=== PATIENT | male | born 1970 | race African-American/Black ===

== ENCOUNTER 2021-08-13 14:54 | Inpatient (IN) | payer MEDICARE, SELFPAY ==
[2021-08-13] VITALS (21 sets, daily range): BP systolic 54–152; BP diastolic 38–90; PULSE 64–80; RESP 10–18; TEMP 36.7–36.9; O2SAT 97–100; BMI 50.5; BMI 50.3
--- NOTE | 2021-08-13 15:11 | ECG_ITS ---
APPROVED REPORT Exam: Resting ECG HR:81 bpm ECG Measurements Heart Rate 81 AXES DC 224 P 54 QRSd 104 QRS 16 QT 400 T -6 QTc 464 Conclusion Sinus rhythm with 1st degree AV block Possible Inferior infarct, age undetermined Abnormal ECG Electronically signed by : Zeb Sneed MD 08/15/2021 09:57:43
--- NOTE | 2021-08-13 15:46 | XR_ITS ---
PROCEDURE INFORMATION: Exam: XR Chest Exam date and time: 08/13/2021 3:46 PM Age: 50 years old Clinical indication: Shortness of breath; Additional info: Shortnes of breath TECHNIQUE: Imaging protocol: XR of the chest. Views: 1 view. Total images: 1 COMPARISON: CT CHEST WO CON 08/13/2021 5:54 PM FINDINGS: Lungs: Normal pulmonary expansion. Pulmonary vasculature grossly normal. No gross pulmonary infiltrates or edema pattern. Minor atelectasis in the lung bases. Pleural spaces: No pleural effusion. No pneumothorax. Heart/Mediastinum: Heart size normal. Cardiac pacemaker without gross hardware complication. No tracheal/mediastinal shift. Bones/joints: No acute osseous abnormalities are identified. IMPRESSION: No acute thoracic process.
[2021-08-13 15:56] LABS: Basophils # 0.1 K/mm3 (0-0.2); Basophils % 1.3 % (0.1-2.0); Eosinophils # 0.3 K/mm3 (0.0-0.4); Hematocrit 42.4 % (42.0-52.0); Hemoglobin 12.9 g/dL (14.1-18.0); Lymphocytes # 2.2 K/mm3 (0.7-4.5); Lymphocytes % 27.4 % (10-50); Mean Corpuscular HGB Conc 30.3 g/dL (31.8-35.4); Mean Corpuscular Hemoglobin 26.9 pg (27.0-31.2); Mean Corpuscular Volume 88.6 fl (80-94); Mean Platelet Volume 11.1 fl (7.4-10.4); Monocytes # 0.5 K/mm3 (0.1-1.0); Monocytes % 6.2 % (1.7-9.3); Neutrophils # 4.9 K/mm3 (1.8-7.8); Neutrophils % 61.2 % (37.0-80.0); Platelet Count 331 K/mm3 (142-424); Red Blood Count 4.79 M/mm3 (4.60-6.20); Red Cell Distribution Width 13.4 % (11.5-17.5); White Blood Count 7.9 K/mm3 (4.8-10.8)
[2021-08-13 16:01] LABS: Alanine Aminotransferase 29 U/L (12-78); Albumin Level 4.2 g/dl (3.5-5.0); Albumin/Globulin Ratio 1.2 (1.1-1.8); Alkaline Phosphatase 105 U/L (38-126); Anion Gap 15.7 mEq/L (5-15); Aspartate Amino Transferase 33 U/L (17-59); Bilirubin,Total 1.2 mg/dl (0.2-1.3); Blood Urea Nitrogen 26 mg/dl (9-20); Calcium 9.6 mg/dl (8.4-10.2); Carbon Dioxide 23 mmol/L (22.0-30.0); Chloride 101 mmol/L (98-107); Estimated Glomerular Filt Rate 30 ml/min (>60); GFR (African American) 37 ML/MIN (>60); Globulin 3.5 g/dL (1.3-3.2); Glucose 181 mg/dl (74-100); Potassium 3.7 mmoL/L (3.5-5.1); Sodium 136 mmol/L (136-145); Total Protein,Serum 7.7 g/dl (6.3-8.2)
[2021-08-13 16:13] LABS: NT Pro Brain Natriuretic Pep. 461 pg/mL (0-125); Troponin I 0.03 ng/ml (0.00-0.034)
--- NOTE | 2021-08-13 16:18 | CT_ITS ---
PROCEDURE INFORMATION: Exam: CT Chest Without Contrast; Diagnostic Exam date and time: 08/13/2021 4:18 PM Age: 50 years old Clinical indication: Other: Hypotension TECHNIQUE: Imaging protocol: Diagnostic computed tomography of the chest without contrast. Total images: 810 Radiation optimization: All CT scans at this facility use at least one of these dose optimization techniques: automated exposure control; mA and/or kV adjustment per patient size (includes targeted exams where dose is matched to clinical indication); or iterative reconstruction. COMPARISON: No relevant prior studies available. FINDINGS: Tubes, catheters and devices: Cardiac pacemaker without gross hardware complication. Thyroid: The visualized thyroid gland is unremarkable. Lungs: Mild bilateral bronchial wall thickening suggesting an element of bronchitis or bronchial edema, with no evidence of bronchiectasis or bronchial occlusions. No infiltrates or edema. Mild atelectasis in the lung bases. Pleural spaces: No pleural effusions. No pneumothorax. Heart: Heart size normal. Mediastinal space: The esophagus is largely contracted without gross abnormality. Pulmonary arteries: The pulmonary arteries demonstrate no gross abnormality. Aorta: The aorta is unremarkable. No mediastinal hematoma. Lymph nodes: No supraclavicular or axillary adenopathy. No mediastinal or hilar adenopathy. Spleen: Ill-defined 6.9 x 4.4 x 4.6 cm hypodense mass in the central spleen measuring around 20 Hounsfield units average density. Adjacent 1.8 cm smaller lesion along its posteromedial margin. Characterization is limited without contrast, and is also limited by patient body habitus and image graininess. Consider nonemergent ultrasound assessment to evaluate for simple cystic features. Consider MRI or PET-CT if simple cystic features are not confirmed sonographically. Stomach: Prior gastric sleeve procedure without evidence of associated complication. Bones/joints: No acute osseous abnormalities are identified. Moderate midthoracic spondylosis. Soft tissues: Soft tissues of the thoracic wall demonstrate no acute abnormality. Other findings: 4 mm juxtapleural noncalcified nodule versus fissural node on sagittal image 29. For patients at low risk (minimal or absent history of smoking and of other known risk factors), no routine follow-up is indicated. For patients at high risk (history of smoking or of other known risk factors), consider optional CT at 12 months. (Kyle et al., Fleischner Society, 2017). IMPRESSION: 1. Cardiac pacemaker without gross hardware complication. No evidence to suggest acute cardiac decompensation. 2. Mild bilateral bronchial wall thickening suspicious for mild bronchitis or bronchial edema. 3. Minor atelectasis in the dependent lung bases. No infiltrates. 4. 4 mm juxtapleural nodule versus fissural node in the right middle lobe along the minor fissure. Please see follow-up recommendations above. 5. 6.9 cm hypodense mass in the central spleen with an adjacent 1.8 cm lesion. Characterization is limited with current technique and the lesions are currently indeterminate. Please see management recommendations above.
--- NOTE | 2021-08-13 16:18 | CT_ITS ---
PROCEDURE INFORMATION: Exam: CT Abdomen And Pelvis Without Contrast Exam date and time: 08/13/2021 4:18 PM Age: 50 years old Clinical indication: Other: Hypotension; Prior surgery; Surgery date: <1 month; Surgery type: Weight loss surgery TECHNIQUE: Imaging protocol: Computed tomography of the abdomen and pelvis without contrast. Total images: 884 Radiation optimization: All CT scans at this facility use at least one of these dose optimization techniques: automated exposure control; mA and/or kV adjustment per patient size (includes targeted exams where dose is matched to clinical indication); or iterative reconstruction. COMPARISON: No relevant prior studies available. FINDINGS: Mediastinal space: The visualized distal esophagus is largely contracted without gross abnormality. Liver: Normal contour. No mass lesions. No intrahepatic biliary ductal dilatation. Gallbladder and bile ducts: Normal. No calcified stones. No ductal dilation. Pancreas: Normal. No inflammatory changes or ductal dilation. Spleen: Somewhat ill-defined hypodense 6.9 x 4.4 x 4.6 cm mass in the central spleen with 1.8 cm adjacent lesion along its posteromedial margin. Characterization is limited by noncontrast technique and body habitus/image graininess. It measures approximately 20 Hounsfield units average density. Consider nonemergent ultrasound assessment to evaluate for simple cystic features. If simple cystic features are not confirmed, then further assessment with pre and postcontrast MRI or PET-CT would be recommended. Adrenal glands: Normal. No adrenal mass. Kidneys and ureters: No acute abnormalities. No hydronephrosis or hydroureter. No urinary tract stones are identified. Stomach and bowel: Prior gastric sleeve procedure without evidence of associated complication. The small bowel is nondilated with no gross abnormality. Mildly excessive fluid content in the mid and proximal colonic segments suspicious for diarrheal state, possibly mild enterocolitis. No evidence of bowel obstruction, perforation, or abscess. Appendix: The appendix is normal in caliber and demonstrates no evidence of appendicitis. Intraperitoneal space: No free fluid or air. Vasculature: No acute process. No abdominal aortic aneurysm. Lymph nodes: No adenopathy. Urinary bladder: Unremarkable as visualized. Reproductive: Mildly enlarged prostate. Bones/joints: No acute osseous abnormalities. Soft tissues: Unremarkable. IMPRESSION: 1. Excessive liquid stool content in the mid and proximal colon suspicious for diarrheal state, possibly mild enterocolitis. No evidence of bowel obstruction, perforation, or abscess. 2. Prior gastric sleeve procedure without associated complication. 3. There are 2 splenic lesions measuring 6.9 cm and 1.8 cm, demonstrating indeterminate features with the current technique. Consider nonemergent ultrasound assessment to evaluate for simple cystic features. If simple cystic features are not confirmed, then further assessment with pre and postcontrast MRI or PET-CT is recommended.
[2021-08-13 16:24] LABS: VBG Base Excess -5.9 mmol/L (-2.4-2.3); VBG HCO3 20.1 mmol/L (23-30); VBG Oxygen Saturation 96.9 % (50-70); VBG PCO2 39.1 mmol/L (35-51); VBG PH 7.33 mmol/L (7.31-7.41); VBG PO2 87.7 mmol/L (28-40); VBG Total CO2 21.3 mmol/L (23-27)
--- NOTE | 2021-08-13 16:56 | CT_ITS ---
PROCEDURE INFORMATION: Exam: CT Head Without Contrast Exam date and time: 08/13/2021 4:56 PM Age: 50 years old Clinical indication: Altered mental status/memory loss; Additional info: AMS TECHNIQUE: Imaging protocol: Computed tomography of the head without contrast. Total images: 287 Radiation optimization: All CT scans at this facility use at least one of these dose optimization techniques: automated exposure control; mA and/or kV adjustment per patient size (includes targeted exams where dose is matched to clinical indication); or iterative reconstruction. COMPARISON: No relevant prior studies available. FINDINGS: Brain: No extra-axial fluid collections. No evidence of acute intracranial hemorrhage. Delacruz-white differentiation is well maintained. No CT evidence of large territory acute or subacute intracranial ischemia/infarct. Symmetrical mild subcortical white matter hypodensities in the high frontal distributions bilaterally most consistent with normal variant prominent perivascular spaces. No intracranial mass lesions. No midline shift or herniation. Cerebral ventricles: Ventricles normal. Paranasal sinuses: Mucous retention cyst versus polyp formation in the right maxillary sinus suggesting mild chronic sinus inflammatory disease. No fluid levels. Visualized paranasal sinuses are otherwise clear. Mastoid air cells: Visualized mastoid air cells are clear. Orbital cavity: Visualized orbital contents demonstrate no acute abnormality. Vasculature: The visualized major intracranial arterial segments demonstrate no gross abnormality by noncontrast CT. No asymmetric vascular hyperdensities suggestive of thrombosis are identified. Bones/joints: The calvarium and visualized facial bones are intact. Soft tissues: Mild right occipital scalp soft tissue swelling or scarring with a few small soft tissue calcifications. No underlying fracture. Other findings: The IACs are grossly normal. The sella is grossly normal. IMPRESSION: 1. No acute intracranial process. No intracranial hemorrhage or mass effect. 2. Mild sinus inflammatory disease. 3. Mild right occipital scalp soft tissue swelling or scarring with no underlying fracture.
--- NOTE | 2021-08-13 17:17 | PC.NURSE ---
At 1530 pt was prepped for art line insertion into the right radial artery. Procedure was completed by Dr. Up with verbal consent from patient for hypotension treatment. Pt prepped for procedure and completed with no complications. Levophed started @ 1550 @ 8mcg/min Drip increased to 10mcg/min after approx. 15mins with no change in pt's b/p 1645- Poor waveform with art line and was reading multiple different readings, went into room and flushed line, repositioned patient, turned drip back down to 8mcg/min informed MD of changes. Pt still A&O times 3 at this time with no complaints.
--- NOTE | 2021-08-13 17:19 | HMH.ITSTN ---
I attempted to do chest x-ray and cat scans at 4:45p.m.. Patient is extremely unstable. November his nurse said to hold off on doing x-rays and cat scans till patient is stable.
--- NOTE | 2021-08-13 17:21 | HMH.ITSTN ---
I attempted to do chest x-ray and cat scans on Sebastien Littlejohn at 4:45p.m. November his nurse said to wait until his condition becomes more stable.
--- NOTE | 2021-08-13 17:22 | HMH.ITSTN ---
Exam delayed on Sebastien Littlejohn until his condition stablizes. Talked to his nurse November regarding his condition.
[2021-08-13 17:26] LABS: Coronavirus 19, PCR Not Detected (NotDetected); Influenza A, PCR Not Detected (NotDetected); Influenza B, PCR Not Detected (NotDetected)
--- NOTE | 2021-08-13 17:28 | PC.NURSE ---
Notified rad pt was able to go over for CT scans at this time.
--- NOTE | 2021-08-13 19:14 | HMH.EDGENADL ---
ED Disposition Clinical Impression: Hypotension Disposition: Admitted As Inpatient Condition on Discharge: Serious Referrals: Franck Quinn MD [Primary Care Provider] - - Critical Care Critical Care Time: Yes Attestation: On 08/13/21, the high probability of a clinically significant, sudden or life threatening deterioration of the following system(s) required my full and direct attention, intervention and personal management. The time I documented below is in addition to time spent performing reported procedures but includes the following listed in this critical care notation. Total Critical Care Time: 35 Vital system(s) involved:: Circulatory Failure My critical care processes included: Assessment & monitoring of V/S, Initial and Re-exams, Data Review/Interpretation, Coordinating Care, Medication Orders and management, Documentation Medical Decision Making - George Inquiry Pt receiving controlled substance: No Vital Signs: 08/13/21 14:56 08/13/21 15:23 08/13/21 15:28 Temperature 98.5 F Temperature Source Oral Pulse Rate 80 78 Pulse Rate [Right] 78 Respiratory Rate 16 16 16 Blood Pressure 71/38 L 96/52 L Blood Pressure [Right Arm] 54/38 L Blood Pressure Mean 52 64 Blood Pressure Mean [Right Arm] 43 Blood Pressure Source [Right Arm] Manual Cuff/ Doppler Blood Pressure Position [Right Arm] Supine 02 Sat by Pulse Oximetry 97 98 99 Oxygen Delivery Method Room Air Oxygen Flow Rate (LPM) 2 08/13/21 15:40 08/13/21 15:50 08/13/21 16:00 Temperature Temperature Source Pulse Rate 78 78 74 Pulse Rate [Right] Respiratory Rate 16 16 12 Blood Pressure 103/59 L 108/65 L 111/73 Blood Pressure [Right Arm] Blood Pressure Mean 73 72 85 Blood Pressure Mean [Right Arm] Blood Pressure Source [Right Arm] Blood Pressure Position [Right Arm] 02 Sat by Pulse Oximetry 98 98 100 Oxygen Delivery Method Oxygen Flow Rate (LPM) 08/13/21 16:10 08/13/21 16:20 08/13/21 16:50 Temperature Temperature Source Pulse Rate 74 77 Pulse Rate [Right] Respiratory Rate 12 14 12 Blood Pressure 119/68 113/72 133/83 Blood Pressure [Right Arm] Blood Pressure Mean 81 84 99 Blood Pressure Mean [Right Arm] Blood Pressure Source [Right Arm] Blood Pressure Position [Right Arm] 02 Sat by Pulse Oximetry 100 100 100 Oxygen Delivery Method Oxygen Flow Rate (LPM) 08/13/21 17:10 08/13/21 17:20 08/13/21 17:41 Temperature Temperature Source Pulse Rate 70 64 80 Pulse Rate [Right] Respiratory Rate 13 12 16 Blood Pressure 136/77 145/74 H 112/70 Blood Pressure [Right Arm] Blood Pressure Mean 96 98 84 Blood Pressure Mean [Right Arm] Blood Pressure Source [Right Arm] Blood Pressure Position [Right Arm] 02 Sat by Pulse Oximetry 100 100 Oxygen Delivery Method Oxygen Flow Rate (LPM) 08/13/21 18:20 08/13/21 18:40 Temperature Temperature Source Pulse Rate 70 70 Pulse Rate [Right] Respiratory Rate 12 12 Blood Pressure 136/79 135/76 Blood Pressure [Right Arm] Blood Pressure Mean 90 89 Blood Pressure Mean [Right Arm] Blood Pressure Source [Right Arm] Blood Pressure Position [Right Arm] 02 Sat by Pulse Oximetry 100 100 Oxygen Delivery Method Oxygen Flow Rate (LPM) - Lab Data Lab Results 08/13/21 14:55: WBC 7.9, RBC 4.79, Hgb 12.9 L, Hct 42.4, MCV 88.6, MCH 26.9 L, MCHC 30.3 L, RDW 13.4, Plt Count 331, MPV 11.1 H, Neut % (Auto) 61.2, Lymph % (Auto) 27.4, [facility] % (Auto) 6.2, Eos % (Auto) 4.0, Baso % (Auto) 1.3, Neut # (Auto) 4.9, Lymph # (Auto) 2.2, [facility] # (Auto) 0.5, Eos # (Auto) 0.3, Baso # (Auto) 0.1 08/13/21 14:55: Sodium 136, Potassium 3.7, Chloride 101, Carbon Dioxide 23, Anion Gap 15.7 H, BUN 26 H, Creatinine 2.30 H, Estimated GFR 30 L, Est GFR ( Amer) 37 L, Glucose 181 H, Calcium 9.6, Total Bilirubin 1.2, AST 33, ALT 29, Alkaline Phosphatase 105, Troponin I 0.03, NT-Pro-B Natriuret Pep 461 H, Total Prote
--- NOTE | 2021-08-13 19:33 | PC.NURSE ---
Levo decreased to 6mcg/min
--- NOTE | 2021-08-13 19:54 | PC.NURSE ---
called house to notified that patient needs a bed
[2021-08-13 19:59] LABS: Troponin I 0.03 ng/ml (0.00-0.034)
--- NOTE | 2021-08-13 20:01 | PC.NURSE ---
Levo stopped at this time for BP 142/78 Art reading 113
--- NOTE | 2021-08-13 20:54 | PC.NURSE ---
Report called to Karla Green RN at this time
[2021-08-13 21:14] LABS: Lactic Acid 0.6 mmol/L (0.7-2.1)
--- NOTE | 2021-08-13 21:30 | PC.NURSE ---
patient up to floor via stretcher at this time.
[2021-08-14] VITALS (11 sets, daily range): BP systolic 122–164; BP diastolic 64–90; PULSE 70–86; RESP 15–20; TEMP 36.7–37; O2SAT 95–100; BMI 50.8; BMI 50.7
--- NOTE | 2021-08-14 08:03 | HMH.PHACONS ---
- Pharmacy Consult Date: 08/14/21 Time: 08:03 Referring provider: DR DE LEON Reason for Consult:: VANCOMYCIN DOSING CONSULT Allergies and ADEs:: Allergies Allergy/AdvReac Type Severity Reaction Status Date / Time No Known Allergies Allergy Verified 10/25/18 12:51 Home Medications:: Home Medications Medication Instructions Recorded Confirmed Type albuterol sulfate 90 mcg/actuation 2 puff INHALATION Q4H PRN each 09/09/17 08/13/21 History breath activated powder inhaler ergocalciferol (vitamin D2) 1,250 50,000 unit PO Q2W 09/09/17 08/13/21 History mcg (50,000 unit) capsule fluoxetine 40 mg capsule 60 mg PO QDAY 09/09/17 08/13/21 History nitroglycerin 0.4 mg sublingual 0.4 mg SUBLINGUAL Q5M PRN 09/09/17 08/13/21 History tablet oxycodone 10 mg tablet 10 mg PO Q8HP PRN tab 09/09/17 08/13/21 History insulin aspar prot-insulin aspart 38 unit SUB-Q DAILY ml 01/26/18 08/13/21 History 100 unit/mL (70-30) subcutaneous pen Amlodipine Besylate [Amlodipine 10 mg PO BID 08/13/21 08/13/21 History 10mg Tab] Aspirin [Aspirin 325mg Tab] 325 mg PO QDAY 08/13/21 08/13/21 History Atorvastatin Calcium [Lipitor 80mg 80 mg PO QDAY 08/13/21 08/13/21 History Tablet*] Doxazosin Mesylate [Doxazosin 1mg 1 mg PO BID 08/13/21 08/13/21 History Tab] Furosemide [Furosemide 40MG tAB*] 40 mg PO BID 08/13/21 08/13/21 History Spironolactone [Spironolactone 25 mg PO BID 08/13/21 08/13/21 History 25mg Tab] carvediloL [Carvedilol 25mg Tab] 50 mg PO BID 08/13/21 08/13/21 History hydroCHLOROthiazide 50 mg PO QDAY 08/13/21 08/13/21 History [Hydrochlorothiazide 50mg Tab] lisinopriL [Lisinopril 40mg Tablet] 40 mg PO QDAY 08/13/21 08/13/21 History Height: 1.83 m Weight: 170.369 kg Laboratory Results:: Laboratory Results - last 24 hr 08/13/21 14:55: WBC 7.9, RBC 4.79, Hgb 12.9 L, Hct 42.4, MCV 88.6, MCH 26.9 L, MCHC 30.3 L, RDW 13.4, Plt Count 331, MPV 11.1 H, Neut % (Auto) 61.2, Lymph % (Auto) 27.4, [place] % (Auto) 6.2, Eos % (Auto) 4.0, Baso % (Auto) 1.3, Neut # (Auto) 4.9, Lymph # (Auto) 2.2, [place] # (Auto) 0.5, Eos # (Auto) 0.3, Baso # (Auto) 0.1 08/13/21 14:55: Sodium 136, Potassium 3.7, Chloride 101, Carbon Dioxide 23, Anion Gap 15.7 H, BUN 26 H, Creatinine 2.30 H, Estimated GFR 30 L, Est GFR ( Amer) 37 L, Glucose 181 H, Calcium 9.6, Total Bilirubin 1.2, AST 33, ALT 29, Alkaline Phosphatase 105, Troponin I 0.03, NT-Pro-B Natriuret Pep 461 H, Total Protein 7.7, Albumin 4.2, Globulin 3.5 H, Albumin/Globulin Ratio 1.2 08/13/21 15:46: VBG pH 7.33, VBG pCO2 39.1, VBG pO2 87.7 H, VBG HCO3 20.1 L, VBG Total CO2 21.3 L, VBG O2 Saturation 96.9 H, VBG Base Excess -5.9 L 08/13/21 17:20: SARS-CoV-2 (PCR) Not detected, Influenza A Untype (PCR) Not detected, Influenza Type B (PCR) Not detected 08/13/21 19:12: Troponin I 0.03 08/13/21 20:53: Lactate 0.6 L Medical History: Reports:: Asthma, Cardiomyopathy, Coronary Artery Disease, Diabetes Mellitus Type 2, Heart Murmur, Hyperlipidemia, Hypertension, Internal Pacemaker Assessment and Plan - Assessment and plan all Dx Assessment and Plan for all problems:: Subjective and Objective Data: This is a 50 year old MALE patient with sepsis. Measured serum creatinine (SCr) is 2.3 mg/dL. Given a height of 183 cm and a weight of 170.4 kg, estimated creatinine clearance is 62.4 mL/min (using the CrCl AdjBW body weight). The following targets were selected for dosing: - Desired AUC = 500 mcg*h/mL - Desired Cmax = 35 mcg/mL - Desired Cmin = 12.5 mcg/mL - Vd coefficient = 0.65 L/kg - Ke equation = CrCl*0.11614+0.0044 Calculations: Based on above, the following are calculated parameters for AUC-based vancomycin dosing in this patient: - Calculated Vd = [id number] - Calculated Ke = 0.056 inverse hours - Calculated half-life = 12.3 hours Recommended Prescribed Dosing: GIVE Vancomycin IV 2000mg [id number] Which is predicted to achieve the following parameter
--- NOTE | 2021-08-14 08:46 | HMH.HP ---
*Admission Date: 08/13/21 *Chief complaint: Malaise/fatigue *History of present illness: 50-year-old white male who suffers from a host of medical problems, including morbid obesity with BMI greater than 50, diabetes type 2 but insulin requiring, cardiomyopathy of uncertain type with pacemaker/defibrillator placement, and who recently underwent gastric sleeve surgery for weight loss at [facility] 2 weeks ago. He reports that this was uncomplicated, and he went home the next day. He has been doing well, and reports that he thinks has been keeping his fluid intake up and is felt okay. He was at a friend's home in [place] over the past couple of days and was called by his glass setter in [place] that he had been in some type of ventricular arrhythmia through the night and they were calling to check on him. He reports that he felt fine until yesterday around 11:30 AM when he was walking down some steps and his defibrillator shocked, but he had no chest pain, no sense of palpitations and did not feel bad until after he was shocked. He reports after the shocking incident he felt progressively more weak, fatigued and lethargic. Came to the emergency department here, where he was found to be profoundly hypotensive in the 50-60 range systolically. Given his obesity and difficulty of obtaining blood pressures with adequate size cuff an art line was placed which confirmed the blood pressure cuff readings of pressures in the 50s to 60s systolic. Blood counts were normal, creatinine was 2.3, we do not have a baseline, but patient appeared slightly dehydrated. Patient was covered for sepsis with broad-spectrum antibiotics, blood cultures were obtained and patient was given a couple of liters of fluid in the ER. He felt a little better, admitted to floor for further evaluation. [facility] History I have reviewed the patient's past medical history: Yes Medical History: Reports:: Asthma, Cardiomyopathy, Coronary Artery Disease, Diabetes Mellitus Type 2, Heart Murmur, Hyperlipidemia, Hypertension, Internal Pacemaker *Have you ever received a pneumonia vaccine?: Yes *Have you received a flu vaccine this season?: Yes Other Medical History: Reports: Arthritis, Thyroid Disease (graves disease) Laterality Cases: Bilateral: Tonsillectomy Other Surgeries: Yes: Angiogram (06/06/18), Angioplasty (2009 no stents), Bariatric Surgery, Cardiac Catheterization, Hernia Repair, Pacemaker Fractures: Yes (Rt wrist) - *Social History Last grade of school completed: High school graduate Smoking Status: Never smoker Alcohol Intake: never Substance Use Type: denies use *Occupational Status:: disabled Housing: house Household Members: family *Travel in the last 8 weeks: None Family Hx:: No significant family history Review of Systems - Review of Systems Review of systems:: pertinent systems reviewed and negative unless documented below Meds Home Medications Medication Instructions Recorded Confirmed Type albuterol sulfate 90 mcg/actuation 2 puff INHALATION Q4H PRN each 09/09/17 08/13/21 History breath activated powder inhaler ergocalciferol (vitamin D2) 1,250 50,000 unit PO Q2W 09/09/17 08/13/21 History mcg (50,000 unit) capsule fluoxetine 40 mg capsule 60 mg PO QDAY 09/09/17 08/13/21 History nitroglycerin 0.4 mg sublingual 0.4 mg SUBLINGUAL Q5M PRN 09/09/17 08/13/21 History tablet oxycodone 10 mg tablet 10 mg PO Q8HP PRN tab 09/09/17 08/13/21 History insulin aspar prot-insulin aspart 38 unit SUB-Q DAILY ml 01/26/18 08/13/21 History 100 unit/mL (70-30) subcutaneous pen Amlodipine Besylate [Amlodipine 10 mg PO BID 08/13/21 08/13/21 History 10mg Tab] Aspirin [Aspirin 325mg Tab] 325 mg PO QDAY 08/13/21 08/13/21 History Atorvastatin Calcium [Lipitor 80mg 80 mg PO HS 08/13/21 08/14/21 History Tablet*] Doxazosin Mesylate [Doxazosin 1mg 1 mg PO DAILY 08/13/21 08/14/21 History Tab] Furosemide [Furosemide 40MG tAB*] 40 mg P
[2021-08-14 08:48] LABS: Chloride 105 mmol/L (98-107); Sodium 139 mmol/L (136-145)
[2021-08-14 08:51] LABS: Blood Urea Nitrogen 22 mg/dl (9-20); Creatinine Clearance Estimated 65 mL/min (50-200); Estimated Glomerular Filt Rate 50 ml/min (>60); GFR (African American) 60 ML/MIN (>60)
[2021-08-14 08:52] LABS: Calcium 8.6 mg/dl (8.4-10.2); Carbon Dioxide 25 mmol/L (22.0-30.0); Glucose 142 mg/dl (74-100)
--- NOTE | 2021-08-14 11:01 | HMH.PHAVTE ---
[facility] Pharmacy VTE Monitoring - Patient Demographics Admission date: 08/13/21 Report Date: 08/14/21 Time: 11:01 Allergies/Adverse Reactions: Patient Allergies No Known Allergies Allergy (Verified 10/25/18 12:51) Height: 1.83 m Weight: 170.369 kg Patient Problems: Current Active Problems Hypotension (Acute) Diabetes mellitus type 2 in obese (Acute) History of supraventricular tachycardia (Chronic) Stage 4 chronic kidney disease (Chronic) Automatic implantable cardioverter-defibrillator in situ (Chronic) Systolic heart failure (Chronic) - VTE Risk Labs: VTE Related Lab Results Hgb 12.9 g/dL (14.1-18.0) L 08/13/21 14:55 Hct 42.4 % (42.0-52.0) 08/13/21 14:55 Plt Count 331 K/mm3 (142-424) 08/13/21 14:55 BUN 22 mg/dl (9-20) H 08/14/21 08:35 Creatinine 1.50 mg/dl (0.66-1.25) H D 08/14/21 08:35 Estimated Creat Clear 65 mL/min (50-200) 08/14/21 08:35 VTE Score: 3 VTE Risk Level: Low Risk - Prophylaxis VTE Prophylaxis Ordered?: Yes Types of VTE Prophylaxis: TEDS Knee High Location of Applied Device: Bilateral Lower Extremeties
--- NOTE | 2021-08-14 11:43 | HMH.CNCARD ---
History of Present Illness Consult date: 08/14/21 Requesting physician: Zeb Sneed Consult reason: congestive heart failure Chief complaint: fatigue History of present illness: This is a 50-year-old -[place] gentleman who presented to the emergency department after he was shocked by his defibrillator and experiencing fatigue and lethargy. The patient has multiple medical problems including cardiomyopathy, congestive heart failure, diabetes, morbid obesity, and hypertension. The patient used to see our cardiology clinic in [place] but has since started going to [facility] for his cardiac care. He is status post gastric sleeve approximately 2 weeks ago. He states that he weighed 398 pounds on the day of surgery and he is now down to 373 pounds in about 2 weeks. He states that his surgery went well and he went home the next day. He reports that he has been keeping up with his fluid intake and he felt fine. 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 On review of his interrogation today he did have several nonsustained high V rates. The patient states that he was walking downstairs to get in his car to come to [facility] around 1130 yesterday when he just did not feel well. He states that he got dizzy and felt like he might pass out and his defibrillator shocked him. He states that he got on into the car and tried to drive to [facility] but he got more weak and lethargic the more he drove so when he got to [place] he just came on to [facility] to be seen. The patient was found to have a systolic blood pressure in the 50s and 60s. They were having some difficulty obtaining his blood pressure and getting an adequate cuff size due to his size so an art line was placed which did confirm that his blood pressure was in the 50s to 60s systolic. His creatinine was up to 2.3 so the patient did appear to be dehydrated. He had been getting some slow hydration because of his dehydration and hypotension. His blood pressure is much improved today. He states he is feeling so much better. He states he is a little fatigued now but nowhere near as bad as he was yesterday. He denies any chest pain or pressure. He denies any shortness of breath or edema. He denies any fever, chills, nausea, vomiting, diarrhea, PND or orthopnea. The patient is lying flat when I walk in the room. [facility] History I have reviewed the patient's past medical history: Yes Medical History: Reports:: Asthma, Cardiomyopathy, Congestive Heart Failure, Diabetes Mellitus Type 2, Heart Murmur, Hyperlipidemia, Hypertension, Internal Pacemaker *Have you ever received a pneumonia vaccine?: Yes *Have you received a flu vaccine this season?: Yes Other Medical History: Reports: Arthritis, Thyroid Disease (graves disease) Laterality Cases: Bilateral: Tonsillectomy Other Surgeries: Yes: Angiogram (06/06/18), Angioplasty (2009 no stents), Bariatric Surgery, Cardiac Catheterization, Hernia Repair, Pacemaker Fractures: Yes (Rt wrist) - *Social History Last grade of school completed: High school graduate Smoking Status: Never smoker Alcohol Intake: never Substance Use Type: denies use *Occupational Status:: disabled Housing: house Household Members: family *Travel in the last 8 weeks: None Family Hx:: No significant family history Meds Home Medications Medication Instructions Recorded Confirmed Type ergocalciferol (vitamin D2) 1,250 50,000 unit PO DIRECTED 09/09/17 08/14/21 History mcg (50,000 unit) capsule nitroglycerin 0.4 mg sublingual 0.4 mg SUBLINGUAL Q5M PRN 09/09/17 08/13/21 History tablet oxycodone 10 mg tablet 10 mg PO Q8HP PRN tab 09/09/17 08/13/21 History insulin aspar prot-insulin aspart 38 unit TABARES
[2021-08-14 12:16] LABS: Free T4 (Free Thyroxine) 1.24 ng/dl (0.78-2.19)
[2021-08-14 12:19] LABS: Magnesium 1.8 mg/dl (1.6-2.3)
[2021-08-14 13:43] LABS: Thyroid Stimulating Hormone 0.62 uIU/mL (0.465-4.68)
--- NOTE | 2021-08-14 15:33 | DIET.NUTRFU ---
This RD saw patient today to review post-op gastric sleeve diet. Patient was admitted 2 weeks post-op, d/t not drinking enough and BP meds. 2 weeks post-op diet includes small frequent meals only 1/3 portion size of our regular diet. Soft proteins: suggested cottage cheese/tuna salad and chicken salad along with cheese slices. goal is 60-80gm protein/day, will make some of these protein available on floor. Also suggested yogurt pudding- those have additional sugars and he is diabetic. He is also to avoid carbonated beverages and caffeine, he reports he is drinking mostly water at this time. He seemed well educated on the diet, will re-visit to make sure he is finding enough choices to meet his needs at his restrictions.
--- NOTE | 2021-08-14 17:39 | PC.NURSE ---
PT IS RESTING IN BED. NO COMPLAINTS OF DISCOMFORT. ALERT AND ORIENTED X4. EATING AND DRINKING WELL. PT STATED HE VOIDED WHEN HE WENT TO THE BATHROOM THIS AM. PT IS AWARE WE STILL NEED TO COLLECT URINE SPECIMEN (URINAL AT BEDSIDE). LUNG SOUNDS CLEAR. ABDOMEN SOFT/LARGE WITH HYPOACTIVE BOWEL SOUNDS. PACED ON TELEMETRY. WILL CONTINUE TO MONITOR.
[2021-08-14 17:53] LABS: POC Glucose,Bedside 115 (70-110)
[2021-08-14 20:37] LABS: Microscopic, Urine URINE MICROSCOPIC (MICROSCOPIC)
[2021-08-14 20:57] LABS: Appearance,Urine CLEAR (Clear); Bilirubin,Urine Negative (Negative); Blood, Urine Negative (Negative); Color,Urine DK YELLOW (Yellow); Glucose,Urine (UA) Negative (Negative); Ketones,Urine 1+ (Negative); Leukocyte Esterase,Urine Negative (Negative); Nitrate,Urine Negative (Negative); Protein,Urine TRACE (Negative); Specific Gravity, Urine >= 1.030 (1.005-1.030); Urobilinogen,Urine 0.2 EU/dl (0.2)
[2021-08-14 21:08] LABS: Barbiturates Screen,Urine Negative ng/ml (<200)
[2021-08-14 21:09] LABS: Benzodiazepines Screen,Urine Negative ng/ml (<200)
[2021-08-14 21:10] LABS: Amphetamine/Metha Screen,Urine Negative ng/ml (<1000); Cannabinoid Screen,Urine Negative ng/ml (<50)
[2021-08-14 21:11] LABS: Cocaine Screen,Urine Negative ng/ml (<300)
[2021-08-14 21:12] LABS: Methadone Screen,Urine Negative ng/ml (<300); Opiate Screen,Urine Negative ng/ml (<300)
[2021-08-14 21:13] LABS: Phencyclidine Screen,Urine Negative ng/ml (<25)
[2021-08-14 21:23] LABS: Bacteria,Urine 2+ /lpf; Mucus,Urine 1+ /lpf
[2021-08-14 22:01] LABS: POC Glucose,Bedside 108 (70-110)
[2021-08-15] VITALS: PULSE 60
[2021-08-15 04:00] VITALS: BP 138/76; PULSE 70; PULSE 73; RESP 18; TEMP 36.8; O2SAT 97
[2021-08-15 05:00] VITALS: BMI 50.8
[2021-08-15 06:32] LABS: MANUAL DIFFERENTIAL MANUAL DIFFERENTIAL (MANUAL DIFF)
[2021-08-15 06:42] LABS: Basophils # 0.1 K/mm3 (0-0.2); Basophils % 0.8 % (0.1-2.0); Eosinophils # 0.6 K/mm3 (0.0-0.4); Eosinophils % 7.1 % (0.1-12.0); Hematocrit 37.1 % (42.0-52.0); Hemoglobin 11.2 g/dL (14.1-18.0); Lymphocytes # 2.2 K/mm3 (0.7-4.5); Lymphocytes % 28.8 % (10-50); Mean Corpuscular HGB Conc 30.3 g/dL (31.8-35.4); Mean Platelet Volume 11.6 fl (7.4-10.4); Monocytes # 0.5 K/mm3 (0.1-1.0); Monocytes % 6.5 % (1.7-9.3); Neutrophils # 4.4 K/mm3 (1.8-7.8); Neutrophils % 56.7 % (37.0-80.0); Platelet Count 211 K/mm3 (142-424); Red Blood Count 4.17 M/mm3 (4.60-6.20); Red Cell Distribution Width 13.4 % (11.5-17.5); White Blood Count 7.8 K/mm3 (4.8-10.8)
[2021-08-15 06:49] LABS: Chloride 108 mmol/L (98-107); Potassium 3.5 mmoL/L (3.5-5.1); Sodium 141 mmol/L (136-145)
[2021-08-15 06:52] LABS: Anion Gap 12.5 mEq/L (5-15); Blood Urea Nitrogen 17 mg/dl (9-20); Carbon Dioxide 24 mmol/L (22.0-30.0); Creatinine Clearance Estimated 81 mL/min (50-200); Estimated Glomerular Filt Rate 64 ml/min (>60); GFR (African American) 78 ML/MIN (>60)
[2021-08-15 06:53] LABS: Calcium 8.7 mg/dl (8.4-10.2); Glucose 114 mg/dl (74-100)
[2021-08-15 06:59] LABS: POC Glucose,Bedside 110 (70-110)
--- NOTE | 2021-08-15 07:33 | HMH.DCSUM ---
General - General Admission date:: 08/13/21 Discharge date: 08/15/21 HPI HPI: 50-year-old white male who suffers from a host of medical problems, including morbid obesity with BMI greater than 50, diabetes type 2 but insulin requiring, cardiomyopathy of uncertain type with pacemaker/defibrillator placement, and who recently underwent gastric sleeve surgery for weight loss at [facility] 2 weeks ago. He reports that this was uncomplicated, and he went home the next day. He has been doing well, and reports that he thinks has been keeping his fluid intake up and is felt okay. He was at a friend's home in [facility] over the past couple of days and was called by his recreation counselor in [place] that he had been in some type of ventricular arrhythmia through the night and they were calling to check on him. He reports that he felt fine until yesterday around 11:30 AM when he was walking down some steps and his defibrillator shocked, but he had no chest pain, no sense of palpitations and did not feel bad until after he was shocked. He reports after the shocking incident he felt progressively more weak, fatigued and lethargic. Came to the emergency department here, where he was found to be profoundly hypotensive in the 50-60 range systolically. Given his obesity and difficulty of obtaining blood pressures with adequate size cuff an art line was placed which confirmed the blood pressure cuff readings of pressures in the 50s to 60s systolic. Blood counts were normal, creatinine was 2.3, we do not have a baseline, but patient appeared slightly dehydrated. Patient was covered for sepsis with broad-spectrum antibiotics, blood cultures were obtained and patient was given a couple of liters of fluid in the ER. He felt a little better, admitted to floor for further evaluation. Hospital Course Hospital Course: 50-year-old gentleman with cardiomyopathy, type 2 diabetes, morbid obesity, A. fib, AICD who presented with hypotension, ROSALES, and dehydration. Cardiology was consulted to assist in his care. Initiated on antibiotics initially for sepsis though he has had no focal sign of infection. Treatment of conditions was as follows: ROSALES -Secondary to dehydration and hypotension. Improved with fluid resuscitation and holding blood pressure medications. Back to baseline by day of discharge. Morbid obesity status post gastric sleeve 2 weeks ago. -Weight down 20 to 30 pounds in 2 weeks following this procedure. Likely culprit in his hypotension and dehydration because of rapid weight loss and poor p.o. intake tolerance. Will need continued close follow-up for regular adjustments of medications with weight loss Cardiomyopathy History of malignant hypertension - We have stopped his Coreg, Cardura, MANAV inhibitor and diuretics. He has been started on bisoprolol 20 mg daily for his blood pressure and rate control. He has tolerated this well with no episodes of significant tachycardia since being admitted to the hospital. His blood pressure is now well controlled. Continue to monitor closely with outpatient care AICD Fibrillation -AICD interrogated during admission, showed he was shocked but it was not a shockable rhythm. The patient was in atrial fibrillation with RVR but his rate was in the VF zone so he was shocked. We did change the settings to his defibrillator to hopefully prevent him from being shocked again for atrial fibrillation with RVR. He has been started on amiodarone 400 mg p.o. twice daily for suppression of atrial fibrillation. He will remain on this dose for 2 weeks and then he will need to be titrated down to amiodarone 200 mg twice daily and then 2 weeks after that he will need to be titrated down to 200 mg a day or less. The patient's atrial fibrillation burden is less than 1% so he does not require long-term anticoagulation at this time. Medically stable for discharge home. Continue to monitor blood glucose regul
[2021-08-15 08:00] VITALS: BP 155/85; PULSE 72; PULSE 80; RESP 16; TEMP 36.7; O2SAT 92
[2021-08-15 08:12] LABS: Hemoglobin A1C 5.7 % (4.0-6.0)
--- NOTE | 2021-08-15 08:54 | HMH.PNCARD ---
Subjective Date: 08/15/21 Time: 08:54 Principal diagnosis: afib with RVR, hypotension Interval history: This is a 50-year-old -[place]vad[place] gentleman who presented to the emergency department after being shocked by his defibrillator and experiencing fatigue and lethargy. The patient was found to be profoundly hypotensive with a systolic blood pressure of 50-60 which was confirmed by arterial line placement. Creatinine was also 2.3. The patient was admitted to the hospital and got some gentle rehydration and his blood pressure medications adjusted. He is status post gastric sleeve approximately 2 weeks ago and has dropped 20 to 30 pounds in the last 2 weeks so he was most likely overmedicated for his hypertension which has been an issue in the past. His AICD was interrogated yesterday which did show that he was shocked. This was an inappropriate shock for atrial fibrillation with RVR that had a rate in the VF zone. His AICD settings were adjusted to hopefully prevent inappropriate shocks for A. fib with RVR again. The patient has been started on amiodarone and his Coreg has been switched over to bisoprolol. He has had no more episodes of tachycardia. His blood pressure has normalized. He denies any chest pain or pressure. He denies any shortness of breath or edema. He denies any fever, chills, nausea, vomiting, diarrhea, PND or orthopnea. Exam Vital signs and Labs for Last 24 Hours: Temp Pulse Resp BP Pulse Ox 98.1 F 72 16 155/85 H 92 L 08/15/21 08:00 08/15/21 08:00 08/15/21 08:00 08/15/21 08:00 08/15/21 08:00 Laboratory Results - last 24 hr 08/14/21 08:35: Carbon Dioxide 25, Anion Gap 13.0, BUN 22 H, Creatinine 1.50 H D, Estimated Creat Clear 65, Estimated GFR 50 L, Est GFR ( Amer) 60 D, Glucose 142 H D, Calcium 8.6 08/14/21 10:42: Magnesium 1.8, TSH 0.62 08/14/21 10:42: Free T4 1.24 08/14/21 16:43: POC Glucose 115 H 08/14/21 20:15: Urine Opiates Screen Negative, Urine Methadone Screen Negative, Ur Barbituates Screen Negative, Ur Phencyclidine Scrn Negative, Ur Amphetamines Screen Negative, U Benzodiazepines Scrn Negative, Urine Cocaine Screen Negative, U Marijuana (THC) Screen Negative 08/14/21 20:15: Urine Color Dk yellow, Urine Appearance Clear, Urine pH 6.0, Ur Specific [place] >= 1.030, Urine Protein Trace, Urine Glucose (UA) Negative, Urine Ketones 1+, Urine Blood Negative, Urine Nitrate Negative, Urine Bilirubin Negative, Urine Urobilinogen 0.2, Ur Leukocyte Esterase Negative, Urine WBC 5-10, Ur Squamous Epith Cells 3-5, Urine Bacteria 2+, Urine Mucus 1+ 08/14/21 21:52: POC Glucose 108 08/15/21 05:45: Hemoglobin A1c 5.7 08/15/21 05:45: WBC 7.8, RBC 4.17 L, Hgb 11.2 L, Hct 37.1 L, MCV 89.0, MCH 27.0, MCHC 30.3 L, RDW 13.4, Plt Count 211 D, MPV 11.6 H, Neut % (Auto) 56.7, Lymph % (Auto) 28.8, [place] % (Auto) 6.5, Eos % (Auto) 7.1, Baso % (Auto) 0.8, Neut # (Auto) 4.4, Lymph # (Auto) 2.2, [place] # (Auto) 0.5, Eos # (Auto) 0.6 H, Baso # (Auto) 0.1 08/15/21 05:45: Sodium 141, Potassium 3.5, Chloride 108 H, Carbon Dioxide 24, Anion Gap 12.5, BUN 17, Creatinine 1.20, Estimated Creat Clear 81, Estimated GFR 64, Est GFR ( Amer) 78 D, Glucose 114 H, Calcium 8.7 08/15/21 06:53: POC Glucose 110 I & O for Last 24 hours: Intake & Output 08/12/21 08/13/21 08/14/21 08/15/21 23:59 23:59 23:59 23:59 Intake Total 1999 / 1999 480 / 480 120 / 120 Output Total 200 / 200 200 / 200 300 / 300 Balance 1800 / 1800 280 / 280 -180 / -180 Weight 371 lb 4.8 oz 374 lb 12.573 oz 375 lb 3.2 oz Narrative: Telemetry strip shows V pacing with a rate of 70. - Constitutional no acute distress, morbidly obese - *Routine HEENT Exam Head: Present: normocephalic, atraumatic Eye: Present: EOMI, PERRL ENT: Present: mucous membranes moist - *Routine Neck Exam Present: supple, full ROM, normal carotid upstroke. Absent: JVD, carotid bruit, lymphadenopathy - *Routine Respiratory Exam Present: CTA bilaterally - *Routine Card
[2021-08-15 09:14] LABS: Eosinophils % 4 % (0-3); Giant Platelets 1+; Hypochromasia 2+; Lymphocytes % 29 % (10-50); Monocytes % 4 % (2-9); Neutrophils % 62 % (42-76); Platelet Estimate Normal; Total Cells Counted 100
[2021-08-15 11:12] LABS: POC Glucose,Bedside 139 (70-110)
[2021-08-15 11:29] VITALS: BP 150/86; PULSE 70; RESP 20; TEMP 36.7; O2SAT 92
[2021-08-15 12:00] VITALS: PULSE 70
== END 2021-08-15 13:58 | disposition home or self-care (01) | DRG 683 ==
LOC: ER 19:22 → 2ND 19:57
PROVIDERS: Internal Medicine Adolescent Medicine; Nurse Practitioner Family; Admitting Provider Internal Medicine Adolescent Medicine; Emergency Provider Internal Medicine Critical Care Medicine; PCP Family Medicine; Visit Provider Internal Medicine Adolescent Medicine
DX: N17.9 Acute kidney failure, unspecified (principal); I95.89 Other hypotension; I13.0 Hypertensive heart and chronic kidney disease with heart failure and stage 1 through stage 4 chronic kidney disease, or unspecified chronic kidney disease; Z68.43 Body mass index [BMI] 50.0-59.9, adult; E86.0 Dehydration; Z20.822 Contact with and (suspected) exposure to COVID-19; I42.9 Cardiomyopathy, unspecified; I50.22 Chronic systolic (congestive) heart failure; N18.4 Chronic kidney disease, stage 4 (severe); E11.22 Type 2 diabetes mellitus with diabetic chronic kidney disease; E66.01 Morbid (severe) obesity due to excess calories; Z95.810 Presence of automatic (implantable) cardiac defibrillator; M19.90 Unspecified osteoarthritis, unspecified site; Z79.4 Long term (current) use of insulin
CPT/HCPCS: 36415; 70450; 71045; 71250; 74176; 80048; 80053; 80305; 81001; 82803; 82962; 83036; 83605; 83735; 83880; 84439; 84443; 84484; 85007; 85014; 85018; 85025; 85048; 85049; 87040; 87086; 93005; 96365; 96367; 96375; 99284; C9803; J3370; U0003; U0005